=== PATIENT | male | born 1945 | race Caucasian/White ===

== ENCOUNTER → 2017-04-06 | Outpatient (CLI) | payer OTHER ==
[~2017-04-06] MED LIST: ASPI81TA28 PO; HYZ/50125 PO
[2017-04-06 13:03] VITALS: BP 139/83; PULSE 56; TEMP 36.6; O2SAT 98
--- NOTE | 2017-04-06 13:31 | Radiation Oncology Follow-Up ---
Radiation Oncology Follow-Up Date of Visit Apr 06, 2017. Reason For Visit Annual follow-up Radiation Completion Date 08/19/14 Diagnosis (1) Rectal adenocarcinoma Status: Resolved Onset Date: 06/03/2014 Permanent Comment: Status post transanal excision of lesion [id number] Status post completion of combined radiation and chemotherapy radiation completed 08/19/2014 received 5860 cGy chemotherapy comprised of Xeloda Last Edited By: Razia Nazario on Sep 25, 2014 16:12 Interim History He's been doing well over this past year. Denies any change in bowel habits. He's noticed no rectal bleeding. He's had no change in his urinary status. He continues regular follow-up with Dr. Valdovinos in [place]. He did have a colonoscopy on 07/12/2016. This showed perianal and digital rectal examinations were normal. He had a normal sphincter tone. There has a localized area of mildly erythematous mucosa found in the rectum. Recommendation was for follow-up visit in one year. He was also referred to medical oncology follow our office. He had been a previous patient of Dr. Stanley. He did see Dr. Cisneros last year. At that time he was up to date on his scans. Allergies Coded Allergies: No Known Allergies (Unverified , 06/13/14) Home Medications Scheduled Aspirin (Aspirin Ec), 81 MG PO DAILY Hctz/Losartan (Hyzaar 12.5MG/50MG), 1 TAB PO DAILY Review of Systems Gastrointestinal: Symptoms: WNL GI Comments: 1 formed stool daily;No fiber supplements; Oral: Symptoms: No Problems Respiratory: Symptoms: WNL Urinary: Symptoms: WNL Skin: Symptoms: No Problems Other Skin Symptoms: right ankle back of leg skin eruption, prev had this left leg rx antibiotic Physical Exam Vital Signs Date Time Temp Pulse Resp B/P (MAP) Pulse Ox O2 Delivery O2 Flow Rate FiO2 04/06/17 13:03 36.6 56 16 139/83 98 Fatigue: None General Appearance: no apparent distress Eyes: normal inspection, EOMI ENT: normal ENT inspection, hearing grossly normal Neck: no adenopathy, thyroid normal Respiratory/Chest: lungs clear, no respiratory distress, no accessory muscle use Cardiovascular: regular rate, rhythm, no gallop, no murmur Abdomen: non tender, soft, no organomegaly Anal / Rectum: Normal sphincter tone. No rectal masses no rectal bleeding. Prostate enlarged. Neurologic/Psychiatric: no motor/sensory deficits, alert, normal mood/affect Skin: warm/dry Pain Management Pain Duration: 3 months Side: Right Pain Location: None Patient Preferred Pain Scale: 0 - 10 Pain Description: Burning Assessment & Plan Plan: Continue regular follow-up with Dr. Valdovinos in [place]. Continue follow-up with Dr. Cisneros. He has appointment with him on 05/19/2017. Recheck laboratory studies and scanning per Dr. Cisneros. We asked him to return to our office in 1 year. He may call if he has any questions or concerns. Total Time In Follow-Up I spent 20 minutes speaking to the patient performing examination. I spent 15 minutes reviewing information in completing this note. Copy To Viraj Valdovinos M.D.; Kenroy Cisneros D.O.; Sergey Flores M.D.([email or web address])
== END | disposition home or self-care (01) ==
LOC: C.ONC 12:29
PROVIDERS: ATTEND Physician Assistant Medical
DX: Z08 Encounter for follow-up examination after completed treatment for malignant neoplasm (principal); Z92.3 Personal history of irradiation; Z85.048 Personal history of other malignant neoplasm of rectum, rectosigmoid junction, and anus